=== PATIENT | male | born 1965 | race Caucasian/White ===

== ENCOUNTER 2016-09-24 20:57 | Emergency (ER) | payer SELFPAY ==
[2016-09-24 21:06] VITALS: BP 135/65
--- NOTE | 2016-09-24 21:58 | RAD ---
HISTORY: Right ankle pain and swelling COMPARISONS: None VIEWS: 3, Frontal, lateral, and oblique views of the right ankle FINDINGS: BONE DENSITY: Normal. BONES: There is no displaced fracture. JOINTS: There is no arthropathy. ALIGNMENT: There is no dislocation. SOFT TISSUES: There is circumferential soft tissue swelling OTHER FINDINGS: None. IMPRESSION: SOFT TISSUE SWELLING. NO ACUTE OSSEOUS INJURY. IF SYMPTOMS PERSIST, RECOMMEND REPEAT IMAGING.
--- NOTE | 2016-09-24 22:04 | ED ---
Lower Extremity - HPI Summary HPI Summary: Patient rolled his ankle two days ago when he stepped off a curb. He was out of town so he did not seek medical evaluation until today. The ankle is quite swollen and he worries it is broken. He has not taken any medication or elevated. No prior injury. - History of Current Complaint Chief Complaint: EDExtremityLower Stated Complaint: RIGHT ANKLE INJURY Time Seen by Provider: 09/24/16 21:09 Hx Obtained From: Patient Mechanism Of Injury: Twisted Onset of Pain: Immediate Onset/Duration: Days - 2 Severity Initially: Moderate Severity Currently: Moderate Pain Intensity: 0 Timing: Constant Location: Is Discrete @ - right ankle Character Of Pain: Aching, Stiffness Associated Signs And Symptoms: Positive: Swelling Aggravating Factor(s): Standing, Movement Alleviating Factor(s): Nothing Able to Bear Weight: Yes - Allergies/Home Medications Allergies/Adverse Reactions: Allergies Allergy/AdvReac Type Severity Reaction Status Date / Time No Known Allergies Allergy Verified 06/12/14 14:18 PMH/Surg Hx/FS Hx/Imm Hx Endocrine/Hematology History: Denies: Hx Diabetes Cardiovascular History: Denies: Hx Congestive Heart Failure, Hx Hypertension, Hx Pacemaker/ICD History: Denies: Hx Dialysis, Hx Renal Disease Sensory History: Denies: Hx Hearing Aid Neurological History: Reports: Other Neuro Impairments/Disorders - 06/2014 SPEACH SLURRED ONLY WHEN LAYING FLAT. Psychiatric History: Denies: Hx Panic Disorder Infectious Disease History: No Infectious Disease History: Denies: Traveled Outside the [place] in Last 30 Days - Family History Known Family History: Positive: None Negative: Diabetes - Social History Occupation: Employed Full-time Lives: With Family Alcohol Use: None Hx Substance Use: No Substance Use Type: Reports: None Hx Tobacco Use: No Smoking Status (MU): Never Smoked Tobacco Review of Systems Positive: Arthralgia, Myalgia, Decreased ROM, Edema Negative: Paresthesia, Numbness All Other Systems Reviewed And Are Negative: Yes Physical Exam Triage Information Reviewed: Yes Vital Signs On Initial Exam: Initial Vitals Temp Pulse Resp BP 98.2 F 90 18 135/65 09/24/16 21:02 09/24/16 21:02 09/24/16 21:02 09/24/16 21:02 Vital Signs Reviewed: Yes Appearance: Positive: Well-Appearing, Well-Nourished, Pain Distress Skin: Positive: Warm, Skin Color Reflects Adequate Perfusion, Dry, Soft Head/Face: Positive: Normal Head/Face Inspection Eyes: Positive: EOMI, ABRAN, Conjunctiva Clear ENT: Positive: Hearing grossly normal Respiratory/Lung Sounds: Positive: Breath Sounds Present Cardiovascular: Positive: RRR Musculoskeletal: Positive: Limited @ - movement in all planes limited by pain, Pain @ - TTP lateral malleoli, Edema Right - ankle Neurological: Positive: Sensory/Motor Intact, Alert, Oriented to Person Place, Time, NV Bundle Intact Distally, Abnormal Gait Psychiatric: Positive: Affect/Mood Appropriate AVPU Assessment: Alert Diagnostics - Vital Signs Vital Signs Temp Pulse Resp BP Pulse Ox 09/24/16 21:30 98.2 F 90 18 135/65 95 09/24/16 21:02 98.2 F 90 18 135/65 - Laboratory Lab Statement: Any lab studies that have been ordered have been reviewed, and results considered in the medical decision making process. - Radiology No standard instances Xray Interpretation: No Acute Changes Radiology Interpretation Completed By: Radiologist Lower Extremity Course/Dx - Diagnoses Differential Diagnosis/HQI/PQRI: Positive: Arthritis, Bursitis, Cellulitis, Contusion, DVT, Fracture (Closed), Sprain, Strain Provider Diagnoses: Right ankle sprain Discharge - Discharge Plan Condition: Stable Disposition: HOME Patient Education Materials: Ankle Sprain (ED), Ankle Stirrup Splint (ED) Referrals: Louie Duke MD [Primary Care Provider] - Additional Instructions: Wear your splint to protect you as your pain improves. Come out of the splint several times daily to perform gentle range of motion exercises to avoid stiffness. Elevate your foot above your heart and apply ice for 20 minutes several times daily to decrease swelling and pain. Use ibuprofen 600mg three times daily with meals for the next 3-5 days to decrease swelling and pain as well. Follow-up with your primary care provider in 3-5 days for evaluation if your symptoms are not improving. Return to the emergency department if your symptoms worsen.
[2016-09-24] MEDS ORDERED: Ibuprofen TAB* 800 MG PO ONE (22:05)
== END 2016-09-24 22:54 | disposition home or self-care (01) ==
LOC: ED 20:57
DX: S93.401A Sprain of unspecified ligament of right ankle, initial encounter (principal); X50.0XXA Overexertion from strenuous movement or load, initial encounter; Y92.9 Unspecified place or not applicable
CPT/HCPCS: 99282; A9270-GY